=== PATIENT | female | born 1985 | race Caucasian/White ===

== ENCOUNTER → 2022-04-19 14:58 | Outpatient (CLI) | payer OTHER, SELFPAY ==
--- NOTE | ~2022-04-19 | US_ITS ---
US thyroid INDICATION: Thyroid nodule TECHNIQUE: Real-time sonographic images of the thyroid gland were obtained. COMPARISON: No prior studies for comparison. FINDINGS: The right thyroid lobe measures 5.2 x 1.8 x 1.8 cm. The left thyroid lobe measures 4.7 x 1 .4 x 1.6 cm. In the left thyroid lobe there is a 3 mm cyst, TR 1. No suspicious masses in either lobe of the thyroid gland. Normal vascular flow is present. IMPRESSION: 1. Unremarkable thyroid ultrasound. Benign 3 mm left thyroid cyst. Reviewed, dictated and finalized at location B.
== END ==
PROVIDERS: PCP Nurse Practitioner; Visit Provider Nurse Practitioner
DX: E07.9 Disorder of thyroid, unspecified (principal)
CPT/HCPCS: 76536